=== PATIENT | male | born 1995 | race Caucasian/White ===

== ENCOUNTER 2019-11-01 22:59 | Inpatient (IN) | payer OTHER, SELFPAY ==
[2019-11-01 23:10] VITALS: BP 141/87; PULSE 103; RESP 20; TEMP 36.6; O2SAT 98
[2019-11-01 23:23] VITALS: BP 141/87; PULSE 90; RESP 18; O2SAT 98
[2019-11-01] MEDS: sodium chloride 0.9% 1,000 ML 999 ML IV (23:49)
[2019-11-01] MEDS: ondansetron 2 mg/ML SDV 2 mL 8 MG IVP (23:49)
[2019-11-01 23:52] VITALS: BP 139/89; PULSE 80; RESP 19; O2SAT 98
--- NOTE | 2019-11-01 23:52 | PC.NURSE ---
Encouraged patient to provide a urine specimen.
[2019-11-02 00:34] LABS: Basophils % 0.3 %; Eosinophils # 0.1 10^3/uL (0.0-0.8); Eosinophils % 0.4 %; Hematocrit 48.9 % (42.0-52.0); Lymphocytes # 1.7 10^3/uL (0.8-4.8); Lymphocytes % 13.6 %; Mean Corpuscular HGB Conc 34.8 g/dL (30.0-36.0); Mean Corpuscular Hemoglobin 29.6 pg (28.0-34.0); Mean Platelet Volume 10.9 fL (7.4-10.4); Monocytes # 0.7 10^3/uL (0.2-0.9); Monocytes % 5.4 %; Nucleated Red Blood Cells % 0 %; Platelet Count 248 10^3/cmm (130-400); Red Blood Count 5.75 10^6/uL (4.1-5.3); Red Cell Distribution Width 12.5 % (12.1-15.1); White Blood Count 12.4 10^3/uL (4.0-10.0)
[2019-11-02 00:40] LABS: INR 0.94 (0.8-1.2)
[2019-11-02 00:50] LABS: Acetaminophen 62.1 ug/mL (10-30); Alanine Aminotransferase 24 U/L (0-41); Albumin Level 5.1 g/dL (3.5-5.2); Alkaline Phosphatase 50 IU/L (40-130); Anion Gap 21.1 (5-19); Aspartate Amino Transferase 21 U/L (0-40); Blood Urea Nitrogen 11 mg/dL (6-20); Calcium 9.7 mg/dL (8.5-10.5); Carbon Dioxide 22 mmol/L (22-29); Chloride 100 mmol/L (98-107); Glomerular Filtration Rate 118.8 mL/min (90-130); Glucose 124 mg/dL (65-115); Osmolality Calculated 287 mOsm/kg (285-295); Potassium 3.1 mmol/L (3.5-5.1); Salicylate 24.1 mg/dL (3-10); Sodium 140 mmol/L (136-145); Total Bilirubin 0.3 mg/dL (0.15-1.2); Total Protein 8.1 g/dL (6.6-8.7)
[2019-11-02 00:57] LABS: Alcohol Level < 10 mg/dL (0-10)
[2019-11-02 01:13] LABS: Add Urine Microscopic? NO
[2019-11-02 01:23] LABS: Amphetamines Screen Urine Negative (Negative); Barbiturates Screen Urine Negative (Negative); Benzodiazepines Screen Urine Negative (Negative); Cocaine Screen Urine Negative (Negative); Opiate Screen Urine Positive (Negative); PCP Screen Urine Negative (Negative); THC Screen Urine Negative (Negative)
[2019-11-02 01:25] LABS: Bilirubin Urine Neg (NEGATIVE); Blood Urine Neg (Negative); Glucose Urine UA Norm (Normal); Ketones Urine 1+ (Negative); Leukocyte Esterase Urine Negative (Negative); Nitrate Urine Negative (Negative); Protein Urine Neg (Negative); Specific Gravity, Urine 1.015 (1.005-1.030); Urine Appearance Clear (CLEAR); Urine Color Yellow (Yellow); Urobilinogen Urine Norm (Negative); pH Urine 6.5 (5-7)
[2019-11-02] MEDS: potassium chloride ER 10 mEq Tablet 40 MEQ PO (01:39)
[2019-11-02 01:41] VITALS: BP 122/65; PULSE 89; RESP 19; O2SAT 98
[2019-11-02] MEDS: haloperidol inj 5 mg/mL INJ 1 mL 3 MG IVP (02:04)
--- NOTE | 2019-11-02 03:09 | PC.NURSE ---
Report called to Alyssa DUGGAN in the NPU. Patient to be transported with security and an additional staff member from the ED to the NPU.
[2019-11-02 03:17] VITALS: BP 107/58; PULSE 95; RESP 16; O2SAT 97
[2019-11-02 03:18] VITALS: RESP 16
[2019-11-02 06:00] VITALS: BP 113/66; PULSE 78; RESP 18; TEMP 36.7; O2SAT 98
[2019-11-02 08:04] LABS: Potassium 3.7 mmol/L (3.5-5.1); Salicylate 18.3 mg/dL (3-10)
--- NOTE | 2019-11-02 10:29 | P.HP_ITS ---
Providers/Chief Complaint Admitting Physician: Kiel Josue MD Chief Complaint: n/v, took pills HPI NPU History of Present Illness Paco Pichardo is a 24 year old male who presents today reporting that he is here because he took too many pills. He reports that this is his first psychiatric hospitalization. He denies ever having therapy, medication management, seen a psychiatrist, been hospitalized like this before, or had a previous suicide attempt. He reports that he smokes about a half pack of cigare ttes a day. He denies alcohol, marijuana, or any other illicit drug use. He has never been to a drug rehabilitation. He has never had a DUI. He reports that he took an overdose of pills, including Tylenol, reporting things were really stressful, he had a lot on his mind, he was overwhelmed, and things had just gotten bad. He reports that last night he threw up, his stomach was hurting, and it was horrible, and that he would never do that again. He reports that he was having financial issues, he got in an argument with his significant other, and he was feeling overwhelmed. He endorsed feelings of depression and anxiety, feelings of hopelessness, helplessness, and worthlessness. He reports that he is sleeping fine and his appetite is fine. But he did have suicidal thoughts and that did yield a suicide attempt. He denies overwhelming anxiety other times in his life and trauma related behaviors. PSYCHIATRIC HISTORY: As above. SUBSTANCE ABUSE HISTORY: As above. FAMILY HISTORY: He has a sister who has struggled with some mental health issues and had a suicide attempt. He denies any other mental health issues that run in the family. He reports that there are some addiction issues on his mother?s side of the family. DEVELOPMENTAL HISTORY: The patient denies any issues with mother?s or delivery of him. The patient met all developmental milestones on time. He denies speech therapy, learning support, emotional support, or special education classes. PSYCHOSOCIAL HISTORY: He reports that his parents were together when he was born. He has an older brother and a younger sister who are products of that same union. He reports that his childhood was pretty good; there was no emotional, physical, or sexual abuse. He reports that he went to the 11th grade at [employer], but he dropped out because his Principal would not let him do [employer], and he really wanted to focus on things that he enjoyed and could turn into a career. Tiffanie jimenez wanted to do auto work so he dropped out and got a GED. He endorses being a heterosexual, reporting his longest relationship was four years. He reports that he has never been . He has three children; a 5 year old boy, a 4 year old boy, and a 4 month old child. He has never been in the . He endorses being a Confucianist. He reports that the longest job he has ever had has been about two and a half years and that was at [employer]. He reports that he lives in a house with his significant other and his 4 month old child. He reports that his older boys are with their mom, and they are from a previous relationship. LEGAL HISTORY: He reports that he has been in retirement one time and that was for fifteen days. MEDICAL HISTORY: He denies any issues. Meds NPU Home Medications Medication Instructions Recorded Confirmed Last Taken Type No Known Home Medications 11/02/19 11/02/19 Unknown History Allergies Allergy/AdvReac Type Severity Reaction Status Date / Time No Known Allergies Allergy Verified 11/01/19 23:15 Mental Status Exam MSE Comments: This is an overweight, well-developed, white male, with significant tattooing on his exposed skin. No abnormal movements, except for psychomotor retardation. Cooperative with exam in no acute distress. Speech was decreased rate and volume. Mood described as ?great, feeling much better?; affect subdued. Thought process, organized. Thought content: patient denied any suicidal or homicidal ideation, there were no delusions reported or noted, patient denied any auditory or visual hallucinations. Attention, concentration, and memory appear intact but none were formally tested. He is alert and oriented times three. Insight and judgment are limited. Impulse control is impaired. Vitals/I&O/Wt Last Vital Signs Temp 98.0 F 11/02/19 06:00 Pulse 78 11/02/19 06:00 Resp 18 11/02/19 06:00 BP 113/66 11/02/19 06:00 Pulse Ox 98 11/02/19 06:00 11/01/19 11/02/19 11/02/19 22:59 06:59 14:59 Intake Total 360 / 360 Balance 360 / 360 Weight last 48 hrs Weight 89.267 kg Weight 66.224 kg Data NPU : 11/01/19 23:45 11/02/19 07:04 A&P Assessment and plan (1) Major depression: Status: Acute (2) Partner relationship problems: Status: Acute (3) Anxiety: Status: Acute Additional A&P Information This is a 24 year old, white male, with major depressive disorder, single episode, severe, and anxiety disorder, unspecified, who presents reporting that he has been overwhelmed and is open to a trial of medication. Start Lexapro 10 mg po qam. Encourage individual, group, and milieu therapy. Continue q-15 minute checks for safety. Involuntary Hold Information 96 Hour Hold: 96 Hour Involuntary Admission: Yes 96 Hour Hold Ending Date: 11/07/19 96 Hour Hold Ending Time: 12:01 Attestations NPU Medical Necessity Statement*: Inpatient hospitalization is medically necessary and the clinically appropriate intervention at this time. We will initiate medications and monitor and make changes as indicated. Patient will be in the hospital for over two midnights. Likely length of stay is two to four days. Coding Level of Care Code Acute Pro Shop Attendant for Blaze Lozoya Diagnoses Major depression F32.9 Partner relationship problems Z63.0 Anxiety F41.9
[2019-11-02] MEDS: escitalopram 10 mg Tablet PO (10:42)
[2019-11-02 14:00] VITALS: BP 111/70; PULSE 94; RESP 18; TEMP 36.8; O2SAT 98
--- NOTE | 2019-11-02 20:35 | W.ED.OVERDOS ---
HPI - Overdose General: Chief Complaint: Overdose Stated Complaint: n/v, took pills Time Seen by Provider: 11/01/19 23:12 History of Present Illness: HPI Narrative: 24-year-old male who from 7 to 8 PM took several Tylenol, ibuprofen, and omeprazole. He started to vomit at home. When asked why, he states he has been under a lot of stress, and depressed. He does not admit to overt suicidal ideation. He is otherwise healthy. He has had no prior history of psychiatric admission or treatment. MD complaint: intentional overdose Onset (ago): hour(s) Timing confirmed by: spouse (Significant other) Review of Systems Const: Denies: fever(s) or chills Eyes: Denies: change in vision ENMT: Denies: swelling of lips/tongue, post nasal drip or sinus pain Card: Denies: chest pain, palpitations, irregular heart rhythm, edema, swelling of feet/ankles, dyspnea on exertion or orthopnea Resp: Denies: dyspnea, productive cough, non-productive cough or wheezing GI: Reports: abdominal pain, nausea and vomiting; Denies: hematochezia or melena : Denies: difficulty urinating or hematuria Musc: Denies: neck pain or back pain Skin/Breast: Denies: rash or erythema Neuro: Reports: dizziness; Denies: headache(s), vertigo or confusion Psych: Reports: anxiety; Denies: visual hallucinations or auditory hallucinations Physical Exam Const: GENERAL APPEARANCE: well developed ORIENTATION/CONSCIOUSNESS: Yes oriented to person, Yes oriented to place and Yes oriented to time HENMT: COMMON NORMALS: normocephalic, external ears normal and Normal external nose present HEAD & SCALP: normocephalic FACE & SINUS: normal facial exam NOSE: Normal external nose present and No nasal discharge present EXTERNAL EAR: Yes external ears normal MOUTH: tongue normal Eye: COMMON NORMALS: Equal, round and reactive pupils present, EOMs intact bilaterally and conjunctivae normal EYELID: eyelids normal CONJUNCTIVA: Yes conjunctivae normal PUPIL: Yes Equal, round and reactive pupils present Neck/C-Spine: GENERAL: No tracheal deviation Chest: COMMONS NORMALS: normal inspection of the chest CHEST: No tenderness Resp: COMMON NORMALS: clear to auscultation bilaterally EFFORT & INSPECTION: No tachypneic, No respiratory distress, No retractions, No uses accessory muscles and No tracheal deviation AUSCULTATION: clear to auscultation bilaterally, no rhonchi, no wheezes and lung sounds not diminished Cardio: COMMON NORMALS: regular rate and regular rhythm RATE: regular rate RHYTHM: regular rhythm HEART SOUNDS: no murmurs PERIPHERAL PULSES: radial pulses present GI: INSPECTION: No abdominal distension AUSCULTATION: No Hyperactive bowel sounds present and No Hypoactive bowel sounds present PALPATION: No Guarding due to palpation present (GI) and No Rigid due to palpation PERCUSSION: no dullness to percussion and no tympanic to percussion : COMMON NORMALS: Yes no CVA tenderness BLADDER/KIDNEY EXAM: Yes no CVA tenderness Back/Pelvis: COMMON NORMALS: no CVA tenderness Neuro: SENSORIUM/ORIENTATION: Yes oriented to person, Yes oriented to place and Yes oriented to time Psych: COMMON NORMALS: Normal thought process present and speech normal APPEARANCE: Yes grossly normal ATTITUDE: Yes calm ACTIVITY/MOTOR BEHAVIOR: Yes psychomotor slowing SPEECH: Yes normal speech MOOD & AFFECT: Yes depressed mood THOUGHT PROCESS: Normal thought process present THOUGHT CONTENT: Yes Suicidality present, No Homicidality present, No delusions and No Hallucination(s) present ATTENTION/CONCENTRATION: Yes attention grossly intact MEMORY/COGNITION: Yes memory grossly intact INSIGHT: Fair insight present (Psych) JUDGEMENT: Limited judgement present (Psych) Skin: COMMON NORMALS: no rashes or lesions noted GENERAL SKIN EXAM: no rashes or lesions noted Course Consultations: Consultation #1: Joselo Vital Signs: Vital signs: Vital Signs Temperature 98.4 F 11/02/19 21:29 Pulse Rate 78 11/02/19 21:29 Respiratory Rate 20 H 11/02/19 21:29 Blood Pressure 103/53 11/02/19 21:29 Pulse Oximetry 98 11/02/19 21:29 MDM - Overdose MDM Narrative: Medical decision making narrative: 24-year-old male with intentional overdose. Poison control was contacted. His dosages well under the 24,000 mg dose of ibuprofen, that would be toxic. His dosage of Tylenol is only 2 g, and he is under the treatment line at 4 hours. He has been vomiting a couple of times, but this is improved with Zofran and haloperidol. He is resting comfortably now. Spoke with psychiatry, they are comfortable taking him on the floor in the NPU. Lab Data: Labs: Lab Results 11/01/19 11/01/19 11/01/19 Range/Units 23:45 23:45 23:45 WBC 12.4 H (4.0-10.0) 10^3/ uL RBC 5.75 H (4.1-5.3) 10^6/u L Hgb 17.0 H (11.7-16.6) g/dL Hct 48.9 (42.0-52.0) % MCV 85.0 (80-94) fL MCH 29.6 (28.0-34.0) pg MCHC 34.8 (30.0-36.0) g/dL RDW 12.5 (12.1-15.1) % Plt Count 248 (130-400) 10^3/c mm MPV 10.9 H (7.4-10.4) fL Neut % (Auto) 80.0 % Lymph % (Auto) 13.6 % [place] % (Auto) 5.4 % Eos % (Auto) 0.4 % Baso % (Auto) 0.3 % Neut # (Auto) 9.90 H (1.8-7.7) 10^3/u L Lymph # (Auto) 1.7 (0.8-4.8) 10^3/u L [place] # (Auto) 0.7 (0.2-0.9) 10^3/u L Eos # (Auto) 0.1 (0.0-0.8) 10^3/u L Baso # (Auto) 0.0 (0.0-0.1) 10^3/u L Nucleated RBC % (a uto) 0 % Nucleated RBCs # 0.0 /100WBC PT 12.80 (12.1-14.9) SECO NDS INR 0.94 (0.8-1.2) Sodium 140 (136-145) mmol/L Potassium 3.1 L (3.5-5.1) mmol/L Chloride 100 (98-107) mmol/L Carbon Dioxide 22 (22-29) mmol/L Anion Gap 21.1 H (5-19) BUN 11 (6-20) mg/dL Creatinine 0.8 (0.7-1.2) mg/dL GFR Calculation 118.8 (90-130) mL/min Glucose 124 H (65-115) mg/dL Calculated Osmolal ity 287 (285-295) mOsm/k g Calcium 9.7 (8.5-10.5) mg/dL Total Bilirubin 0.3 (0.15-1.2) mg/dL AST 21 (0-40) U/L ALT 24 (0-41) U/L Alkaline Phosphata se 50 (40-130) IU/L Total Protein 8.1 (6.6-8.7) g/dL Albumin 5.1 (3.5-5.2) g/dL Globulin 3.0 (1.3-4.6) g/dL Urine Color (Yellow) Urine Appearance (CLEAR) Urine pH (5-7) Ur Specific Gravit y (1.005-1.030) Urine Protein (Negative) Urine Glucose (UA) (Normal) Urine Ketones (Negative) Urine Blood (Negative) Urine Nitrate (Negative) Urine Bilirubin (NEGATIVE) Urine Urobilinogen (Negative) mg/dL Ur Leukocyte Kim ase (Negative) Salicylates 24.1 H (3-10) mg/dL Urine Opiates Scre en (Negative) ng/mL Acetaminophen 62.1 H (10-30) ug/mL Ur Barbiturates Sc reen (Negative) ng/mL Ur Phencyclidine S crn (Negative) ng/mL Ur Amphetamines Sc reen (Negative) ng/mL U Benzodiazepines Scrn (Negative) ng/mL Urine Cocaine Scre en (Negative) ng/mL U Marijuana (THC) Screen (Negative) ng/mL Ethyl Alcohol < 10 (0-10) mg/dL 11/02/19 11/02/19 Range/Units 01:05 01:05 WBC (4.0-10.0) 10^3/ uL RBC (4.1-5.3) 10^6/u L Hgb (11.7-16.6) g/dL Hct (42.0-52.0) % MCV (80-94) fL MCH (28.0-34.0) pg MCHC (30.0-36.0) g/dL RDW (12.1-15.1) % Plt Count (130-400) 10^3/c mm MPV (7.4-10.4) fL Neut % (Auto) % Lymph % (Auto) % [place] % (Auto) % Eos % (Auto) % Baso % (Auto) % Neut # (Auto) (1.8-7.7) 10^3/u L Lymph # (Auto) (0.8-4.8) 10^3/u L [place] # (Auto) (0.2-0.9) 10^3/u L Eos # (Auto) (0.0-0.8) 10^3/u L Baso # (Auto) (0.0-0.1) 10^3/u L Nucleated RBC % (a uto) % Nucleated RBCs # /100WBC PT (12.1-14.9) SECO NDS INR (0.8-1.2) Sodium (136-145) mmol/L Potassium (3.5-5.1) mmol/L Chloride (98-107) mmol/L Carbon Dioxide (22-29) mmol/L Anion Gap (5-19) BUN (6-20) mg/dL Creatinine (0.7-1.2) mg/dL GFR Calculation (90-130) mL/min Glucose (65-115) mg/dL Calculated Osmolal ity (285-295) mOsm/k g Calcium (8.5-10.5) mg/dL Total Bilirubin (0.15-1.2) mg/dL AST (0-40) U/L ALT (0-41) U/L Alkaline Phosphata se (40-130) IU/L Total Protein (6.6-8.7) g/dL Albumin (3.5-5.2) g/dL Globulin (1.3-4.6) g/dL Urine Color Yellow (Yellow) Urine Appearance Clear (CLEAR) Urine pH 6.5 (5-7) Ur Specific Gravit y 1.015 (1.005-1.030) Urine Protein Neg (Negative) Urine Glucose (UA) Norm (Normal) Urine Ketones 1+ H (Negative) Urine Blood Neg (Negative) Urine Nitrate Negative (Negative) Urine Bilirubin Neg (NEGATIVE) Urine Urobilinogen Norm (Negative) mg/dL Ur Leukocyte Kim ase Negative (Negative) Salicylates (3-10) mg/dL Urine Opiates Scre en Positive H (Negative) ng/mL Acetaminophen (10-30) ug/mL Ur Barbiturates Sc reen Negative (Negative) ng/mL Ur Phencyclidine S crn Negative (Negative) ng/mL Ur Amphetamines Sc reen Negative (Negative) ng/mL U Benzodiazepines Scrn Negative (Negative) ng/mL Urine Cocaine Scre en Negative (Negative) ng/mL U Marijuana (THC) Screen Negative (Negative) ng/mL Ethyl Alcohol (0-10) mg/dL Discharge Plan Discharge Patient Disposition: Admitted As Inpatient Admit Provider: Kiel Josue Discharge Date/Time: 11/02/19 03:18 Coding Level of Care Code ED Television News Video Editor for Blaze Lozoya
[2019-11-02] MEDS: hyDROXYzine 25 mg Capsule 50 MG PO (21:20)
[2019-11-02] MEDS: trazodone 50 mg Tablet PO (21:21)
[2019-11-02 21:29] VITALS: BP 103/53; PULSE 78; RESP 20; TEMP 36.9; O2SAT 98
[2019-11-03 06:00] VITALS: BP 95/61; PULSE 67; RESP 19; TEMP 36.7; O2SAT 97
[2019-11-03] MEDS: escitalopram 10 mg Tablet PO (08:09)
--- NOTE | 2019-11-03 12:07 | PC.RESP ---
Smoking Cessation information sent to patient.
[2019-11-03 14:00] VITALS: BP 112/67; PULSE 88; RESP 20; TEMP 36.7; O2SAT 97
--- NOTE | 2019-11-03 18:25 | P.DS_ITS ---
Diagnoses at Discharge Discharge Diagnosis (1) Major depression: Status: Acute (2) Partner relationship problems: Status: Acute (3) Anxiety: Status: Acute Reason for Visit Reason for Visit: n/v, took pills Brief History: History of Present Illness Paco Pichardo is a 24 year old male who presents today reporting that he is here because he took too many pills. He reports that this is his first psychiatric hospitalization. He denies ever having therapy, medication management, seen a psychiatrist, been hospitalized like this before, or had a previous suicide attempt. He reports that he smokes about a half pack of cigarettes a day. He denies alcohol, marijuana, or any other illicit drug use. He has never been to a drug rehabilitation. He has never had a DUI. He reports that he took an overdose of pills, including Tylenol, reporting things were really stressful, he had a lot on his mind, he was overwhelmed, and things had just gotten bad. He reports that last night he threw up, his stomach was hurting, and it was horrible, and that he would never do that again. He reports that he was having financial issues, he got in an argument with his significant other, and he was feeling overwhelmed. He endorsed feelings of depression and anxiety, feelings of hopelessness, helplessness, and worthlessness. He reports that he is sleeping fine and his appetite is fine. But he did have suicidal thoughts and that did yield a suicide attempt. He denies overwhelming anxiety other times in his life and trauma related behaviors. PSYCHIATRIC HISTORY: As above. SUBSTANCE ABUSE HISTORY: As above. FAMILY HISTORY: He has a sister who has struggled with some mental health issues and had a suicide attempt. He denies any other mental health issues that run in the family. He reports that there are some addiction issues on his mother?s side of the family. DEVELOPMENTAL HISTORY: The patient denies any issues with mother?s or delivery of him. The patient met all developmental milestones on time. He denies speech therapy, learning support, emotional support, or special education classes. PSYCHOSOCIAL HISTORY: He reports that his parents were together when he was born. He has an older brother and a younger sister who are products of that same union. He reports that his childhood was pretty good; there was no emotional, physical, or sexual abuse. He reports that he went to the 11th grade at [employer], but he dropped out because his Principal would not let him do [employer], and he really wanted to focus on things that he enjoyed and could turn into a career. He wanted to do auto work so he dropped out and got a GED. He endorses being a heterosexual, reporting his longest relationship was four years. He reports that he has never been . He has three children; a 5 year old boy, a 4 year old boy, and a 4 month old child. He has never been in the . He endorses being a [employer]. He reports that the longest job he has ever had has been about two and a half years and that was at [employer]. He reports that he lives in a house with his significant other and his 4 month old child. He reports that his older boys are with their mom, and they are from a previous relationship. LEGAL HISTORY: He reports that he has been in [facility] one time and that was for fifteen days. MEDICAL HISTORY: He denies any issues. Hospital Course Hospital Course The patient presented to the emergency room after taking Tylenol, Ibuprofen, and Omeprazole, after some stressful issues at home. He did not admit to a suicide attempt, in the emergency room, but just stated that he had been under a lot of stress. He denied prior psychiatric admission, and he was admitted on a 96-hour hold to the neuropsychiatric unit for definitive treatment for those issues. On the unit, he was very remorseful and upset with himself, identifying how ?stupid? it was for him to behave in the way that he had. He was immediately open to medication to help with his anxiety and depression. He had some concerns about work and his significant other, as well as his child who he provides for. He quickly acclimated to the individual, group, and milieu therapies provided. He tolerated the medication fine. He was very open to follow up and remorseful for his actions. He showed modest improvement. During the hospitalization, the patient had routine laboratory studies which were within normal limits, except for a few outliers. Additionally, the patient had a general medical evaluation which was within normal limits and revealed no new acute processes. Discharge Summary At the time of discharge the patient denied all lethality, was absent psychosis, and mood and anxiety were well managed. The patient endorsed a plan to follow-up with outpatient services, as recommended. The patient was noted to be absent credible lethality, and had obtained benefit from an inpatient hospitalization, and so he was discharged. Involuntary Hold Information 96 Hour Hold: 96 Hour Involuntary Admission: Yes 96 Hour Hold Ending Date: 11/07/19 96 Hour Hold Ending Time: 12:01 Mental Status Exam MSE Comments: This is an overweight, well-developed, white male, with significant tattooing on his exposed skin. No abnormal movements, except for psychomotor retardation. Cooperative with exam in no acute distress. Speech was more normal rate and volume. Mood described as alot better; affect brighter. Thought process, organized. Thought content: patient denied any suicidal or homicidal ideation, there were no delusions reported or noted, patient denied any auditory or visual hallucinations. Attention, concentration, and memory appear intact but none were formally tested. He is alert and oriented times three. Insight and judgment are improving. Impulse control is limited, but improving. Discharge Data Vitals: Last Vital Signs Temp 98.0 F 11/03/19 14:00 Pulse 88 11/03/19 14:00 Resp 20 H 11/03/19 14:00 BP 112/67 11/03/19 14:00 Pulse Ox 97 11/03/19 14:00 Discharge Plan Discharge Patient Disposition: Home Condition: Stable Prescriptions: New trazodone 50 mg Tablet 50 mg PO BEDTIME PRN (Reason: Sleep) 30 Days Qty: 30 RF: 1 hydroxyzine pamoate 25 mg Capsule 50 mg PO Q6H PRN (Reason: Anxiety) 30 Days Qty: 180 RF: 1 escitalopram oxalate 10 mg Tablet 10 mg PO DAILY 30 Days Qty: 30 RF: 1 Continued No Known Home Medications RF: 0 Discharge Orders: Discharge Order (Routine); Ordered 11/03/19 Ordered By: Kiel Josue Referrals: [facility] [Outside] - 4-7 days (go as a walk-in as as soon as you can. hours: 7:30 a.m.-2:30 p.m. ) Ijeoma Morrell DO [Physician] - (possible primary care provider for you. ) Discharge Diet: Regular Discharge Activity: Resume usual activity Patient Instructions: Trazodone (By mouth), Hydroxyzine Pamoate (By mouth), Escitalopram (By mouth) Discharge Date/Time: 11/03/19 20:03 Discharge Attestations NPU Time Spent in Discharge Care*: less than 30 min Specific Discharge Activities: Specific discharge activities: educating patient, discussing with social work case manager/social workers/dc planners, do cumenting/other paperwork and evaluating patient/reviewing data Coding Level of Care Code Acute Child Care Attendant for Blaze Fwd Diagnoses Major depression F32.9 Partner relationship problems Z63.0 Anxiety F41.9
[2019-11-03 18:40] VITALS: BP 112/67; PULSE 88; RESP 20; TEMP 36.7; O2SAT 97
== END 2019-11-03 20:03 | disposition home or self-care (01) | DRG 885 ==
LOC: ER 23:18 → NP 11-02 01:56
PROVIDERS: Emergency Medicine; Admitting Provider Psychiatry & Neurology Psychiatry; Visit Provider Psychiatry & Neurology Psychiatry
DX: F32.2 Major depressive disorder, single episode, severe without psychotic features (principal); F17.210 Nicotine dependence, cigarettes, uncomplicated; Z63.0 Problems in relationship with spouse or partner; F41.9 Anxiety disorder, unspecified; Z81.8 Family history of other mental and behavioral disorders
CPT/HCPCS: 12345; 36415; 80053; 80306; 80307; 81003; 84132; 85025; 85610; 96375; 99282; J1630; J2405; J7030

== ENCOUNTER → 2020-03-16 11:27 | Outpatient (BNVA) | payer OTHER, SELFPAY | PROVIDERS: PCP Family Medicine; Visit Provider Family Medicine | DX: R50.9 Fever, unspecified (principal); Z20.828 Contact with and (suspected) exposure to other viral communicable diseases | CPT/HCPCS: 87400; 87635 ==

== ENCOUNTER 2022-03-22 18:45 | Emergency (ER) | payer SELFPAY ==
--- NOTE | 2022-03-22 18:50 | XRR_ITS ---
PROCEDURE INFORMATION: Exam: XR Left Foot Exam date and time: 03/22/2022 6:55 PM Age: 26 years old Clinical indication: Pain; Foot; Left; Additional info: Injury TECHNIQUE: Imaging protocol: Radiologic exam of the Left foot. Views: 3 or more views. COMPARISON: No relevant prior studies available. FINDINGS: Bones/joints: Osseous structures are intact. Negative for fracture. Joint spaces are preserved. Soft tissues: Normal. XR/XR foot LT min 3V* [id number] IMPRESSION: No acute findings.
--- NOTE | 2022-03-22 18:50 | XRR_ITS ---
PROCEDURE INFORMATION: Exam: XR Left Ankle Exam date and time: 03/22/2022 6:55 PM Age: 26 years old Clinical indication: Pain; Ankle; Left; Additional info: Injury TECHNIQUE: Imaging protocol: Radiologic exam of the Left ankle. Views: 3 or more views. COMPARISON: No relevant prior studies available. FINDINGS: Bones/joints: Osseous structures are intact. Negative for fracture. Joint spaces are preserved. Soft tissues: Normal. XR/XR ankle LT min 3V* [id number] IMPRESSION: No acute findings.
[2022-03-22 19:06] VITALS: BP 146/87; RESP 16; TEMP 36.7; O2SAT 99
--- NOTE | 2022-03-22 19:14 | ED_ITS ---
HPI - Extremity Problem General: Chief complaint: Extremity Injury, Lower Stated complaint: left foot injury Time Seen by Provider: 03/22/22 18:50 Source: patient Mode of arrival: ambulatory Limitations: no limitations History of Present Illness: 26-year-old male states that he dropped a 60 pound deal of plastic wrap on his left great toe he has a small laceration to his toe he has some pain as well denies any other injuries rates his pain a 4 out of 10 his nail is intact. Denies any worsening improving factors. Associated symptoms: Deny chest pain, fever(s) or rash Review of Systems Const: Denies: fever(s), chills, body aches or change in appetite Eyes: Denies: blurry vision or eye discomfort ENMT: Denies: throat pain or dental pain Card: Denies: chest pain Resp: Denies: dyspnea GI: Denies: abdominal pain, nausea, vomiting or diarrhea : Denies: dysuria Musc: Reports: extremity pain Skin/Breast: Denies: rash Neuro: Denies: headache(s) Psych: Denies: depression Tyrone/Lymph: Denies: easy bruising All/Imm: Denies: urticaria PFSH ED PFSH: Medical History Psychiatric care Surgical History No pertinent past surgical history Family History Other CAD (coronary artery disease) Cancer Social History Smoking and tobacco status: current every day smoker cigarettes Packs smoked per day: 0.1 Alcohol intake: never Physical Exam Const: COMMON NORMALS: no acute distress and patient oriented x3 HENMT: COMMON NORMALS: normocephalic HEAD & SCALP: normocephalic Eye: COMMON NORMALS: conjunctivae normal CONJUNCTIVA: Yes conjunctivae normal Neck/C-Spine: COMMON NORMALS: supple Chest: COMMONS NORMALS: normal inspection of the chest Resp: COMMON NORMALS: normal respiratory effort Cardio: COMMON NORMALS: regular rate RATE: regular rate GI: INSPECTION: Yes normal to inspection Extremity: COMMON NORMALS: full ROM OTHER: Superficial laceration just proximal to the nailbed of the left great toe less than 1 cm Neuro: COMMON NORMALS: patient oriented x3 Psych: COMMON NORMALS: mental status grossly normal Skin: COMMON NORMALS: no rashes or lesions noted GENERAL SKIN EXAM: no rashes or lesions noted Course Vital Signs: Vital signs: Vital Signs Temperature 98.0 F 03/22/22 19:06 Respiratory Rate 16 03/22/22 19:06 Blood Pressure 146/87 03/22/22 19:06 Pulse Oximetry 99 03/22/22 19:06 Oxygen Delivery Me thod 03/22/22 19:06 MDM - Extremity (Nontraumatic) Medical Decision Making Patient presents with superficial laceration to his great toe x-rays negative repaired with tissue adhesive he stable for discharge. Lab Data Radiology Impressions Ankle X-Ray 03/22/22 18:50 IMPRESSION: No acute findings. Foot X-Ray 03/22/22 18:50 IMPRESSION: No acute findings. Discharge Plan Discharge Patient Disposition: Home Clinical Impression: Laceration of toe Qualifiers: Encounter type: initial encounter Toe: great toe Damage to nail status: without damage Foreign body presence: without foreign body Laterality: left Qualified Code(s): S91.112A - Laceration without foreign body of left great toe without damage to nail, initial encounter Condition: Stable Prescriptions: No Action venlafaxine [Effexor XR] 37.5 mg capsule,extended release 24hr 37.5 mg PO DAILY Qty: 30 0RF Rx Instructions: 340 B Discharge Orders: Discharge ED (Routine); Ordered 03/22/22 Ordered By: Vicky Laguna Referrals: Ijeoma Morrell DO [Primary Care Provider] - 1-3 days Discharge Diet: Advance as tolerated Discharge Activity: Resume usual activity Patient Instructions: Laceration (ED), Skin Adhesive Care (ED) Coding Level of Care Code ED Staff Pharmacist [facility] Exam Comprehensive
== END 2022-03-22 19:29 | disposition home or self-care (01) ==
PROVIDERS: Emergency Provider Emergency Medicine; PCP Family Medicine
DX: S91.112A Laceration without foreign body of left great toe without damage to nail, initial encounter (principal); F17.210 Nicotine dependence, cigarettes, uncomplicated; W20.8XXA Other cause of strike by thrown, projected or falling object, initial encounter
CPT/HCPCS: 12001; 73610; 73630; 99283

== ENCOUNTER 2022-11-29 10:50 | Emergency (ER) | payer SELFPAY ==
[2022-11-29 11:28] VITALS: BP 123/79; PULSE 69; RESP 16; TEMP 36.7; O2SAT 99
--- NOTE | 2022-11-29 11:35 | ED_ITS ---
HPI - Head Injury General: Chief complaint: Head Injury Stated complaint: head inj Time Seen by Provider: 11/29/22 11:35 Source: patient Mode of arrival: ambulatory Limitations: no limitations History of Present Illness: Patient is a 27-year-old male who presents to ED today for evaluation of a head injury that he sustained yesterday while at work. 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 There was no LOC. He states immediately afterwards he saw stars for a little bit. He states following work and later that evening he felt a little nauseous and felt like his vision was slightly off. He states his symptoms have improved into today. He complains of a mild headache. He has no other complaints or injuries at this time. States he would not like injury to be Worker's Comp. Complaint: head injury Onset (ago): day(s) (yesterday) Mechanism of Injury: work related injury Place: work Loss of Consciousness: no Location of injury: frontal Severity: mild Radiation: none Other Injuries: none Associated symptoms: Reports nausea (improved), visual changes (improved) and other (headache); Deny confusion, neck pain, vertigo or vomiting Review of Systems Eyes: Denies: photophobia, floaters or seeing flashes ENMT: Denies: ear discharge or nasal discharge GI: Reports: nausea (improved); Denies: vomiting Musc: Denies: neck pain or back pain Neuro: Reports: headache(s); Denies: numbness in extremities, weakness in extremities, sensory changes, lack of coordination, difficulty walking, frequent falls, dizziness, vertigo, confusion, behavioral changes, Slurred speech present, difficulty communicating thoughts or seizure-like activity PFS ED PFSH: Medical History Nicotine dependence, cigarettes, with unspecified nicotine-induced disorders Psychiatric care Surgical History No pertinent past surgical history Family History Other CAD (coronary artery disease) Cancer Social History Smoking and tobacco status: current every day smoker e-cigarettes E-Cigarette Details: vaporizer device Alcohol intake: never Substance/Drug Use: never Physical Exam Const: COMMON NORMALS: no acute distress, average body habitus, patient oriented x3, no limitations, healthy appearing, alert and well nourished GENERAL APPEARANCE: cooperative ORIENTATION/CONSCIOUSNESS: Yes awake, Yes oriented to person, Yes oriented to place and Yes oriented to time HENMT: COMMON NORMALS: normocephalic, TM's normal bilaterally and Normal external nose present HEAD & SCALP: normal to inspection and normocephalic HEAD IMAGES: 1. small abrasion/no hematoma FACE & SINUS: normal facial exam and sinuses nontender NOSE: Normal external nose present TYMPANIC MEMBRANE: TM's normal bilaterally Eye: COMMON NORMALS: Equal, round and reactive pupils present and EOMs intact bilaterally GENERAL EYE: appearance normal, both eyes and all related structures and normal light reflex PUPIL: Yes Equal, round and reactive pupils present DIRECT OPHTHALMOSCOPY: Yes normal light reflex Neck/C-Spine: COMMON NORMALS: full ROM GENERAL: Yes normal visual inspection CERVICAL SPINE: No Cervical spine tenderness Neuro: MADELYN COMA SCALE: document GCS findings Madelyn coma scale eye o pening: Spontaneous Madelyn coma scale verbal response: Orientated Madelyn coma scale motor response: [place] commands [place] coma scale total score: 15 COMMON NORMALS: patient oriented x3, CN's II-XII intact bilaterally, moves all extremities, no focal motor deficits, no sensory deficits noted and gait normal SENSORIUM/ORIENTATION: Yes alert, Yes oriented to person, Yes oriented to place and Yes oriented to time CRANIAL NERVES: Yes CN normal except as noted SPEECH: speech normal GAIT: Yes Normal gait present MOTOR EXAM: 5/5 motor strength present throughout Course Vital Signs: Vital signs: Vital Signs Temperature 98.0 F 11/29/22 11:28 Pulse Rate 69 11/29/22 11:28 Respiratory Rate 16 11/29/22 11:28 Blood Pressure 123/79 11/29/22 11:28 Pulse Oximetry 99 11/29/22 11:28 Oxygen Delivery Me thod Room Air 11/29/22 11:28 MDM - Head Injury Medcial Decision Making Based on patient's history and physical exam I do not feel like he needs to undergo emergent CT imaging. Discussed close observation of symptoms and follow-up with his primary care provider in 3 to 5 days. Return to ED precautions given. Discharge Plan Discharge Patient Disposition: Home Clinical Impression: Minor head injury without loss of consciousness Qualifiers: Encounter type: initial encounter Qualified Code(s): S09.90XA - Unspecified injury of head, initial encounter Condition: Stable Prescriptions: No Action lamotrigine 25 mg tablet 25 mg PO DAILY 14 Days Qty: 150 0RF Rx Instructions: Take 1 tab daily for 2 weeks, then 2 tabs daily for 2 weeks then 3 tabs daily for 2 weeks then 4 tabs daily trazodone 50 mg tablet 100 mg PO .HS PRN (Reason: insomnia) Qty: 60 1RF ondansetron HCl (PF) 4 mg/2 mL solution 8 mg IM ONCE Qty: 4 0RF Discharge Orders: Discharge ED (Routine); Ordered 11/29/22 Ordered By: Carolyne Tomas Referrals: Ijeoma Morrell DO [Primary Care Provider] - Patient Instructions: Head Injury (DC) Stand Alone Forms: Work/School Release Coding Level of Care Code ED Vice President [employer]
[2022-11-29 12:09] VITALS: PULSE 86; RESP 16; O2SAT 98
== END 2022-11-29 12:10 | disposition home or self-care (01) ==
PROVIDERS: Emergency Provider Physician Assistant; PCP Family Medicine
DX: S09.8XXA Other specified injuries of head, initial encounter (principal); F17.290 Nicotine dependence, other tobacco product, uncomplicated; W22.8XXA Striking against or struck by other objects, initial encounter; Y99.0 Civilian activity done for income or pay
CPT/HCPCS: 99282

== ENCOUNTER → 2023-04-05 16:50 | Outpatient (BNVA) | payer SELFPAY | PROVIDERS: PCP Family Medicine; Visit Provider Registered Nurse Neonatal Intensive Care | DX: Z20.828 Contact with and (suspected) exposure to other viral communicable diseases (principal) | CPT/HCPCS: 87400 ==

== ENCOUNTER → 2023-04-27 16:51 | Outpatient (BNVA) | payer SELFPAY | PROVIDERS: PCP Family Medicine; Visit Provider Nurse Practitioner | DX: R09.81 Nasal congestion (principal) | CPT/HCPCS: 87400 ==

== ENCOUNTER 2023-09-19 12:50 | Outpatient (CLI) | payer SELFPAY ==
--- NOTE | 2023-09-19 12:54 | XR_ITS ---
WS: [id number] XR lumbar spine 2-3V* [id number] REASON FOR EXAM: low back pain FINDINGS: Mild straightening of the normal lordosis. No vertebral body abnormality. Intervertebral disc spaces are intact and relatively well preserved. Mild narrowing of the L5-S1 disc space. No facet joint abnormality. No spondylolysis or spondylolisthesis. The lumbar spine is unchanged compared to 01/26/2018. XR/XR lumbar spine 2-3V* [id number] IMPRESSION: Stable lumbar spine with no evidence significant abnormality.
--- NOTE | 2023-09-19 12:54 | XR_ITS ---
WS: [id number] XR thoracic spine 2V [id number] REASON FOR EXAM: chronic low back pain FINDINGS: No significant scoliosis or kyphosis. No vertebral body abnormality. Intervertebral disc spaces are intact and well preserved. XR/XR thoracic spine 2V [id number] IMPRESSION: No significant abnormality.
== END 2023-09-19 12:51 | disposition home or self-care (01) ==
LOC: LAB 12:52
PROVIDERS: PCP Family Medicine; Visit Provider Family Medicine
DX: M54.6 Pain in thoracic spine (principal); G89.29 Other chronic pain; M54.50 Low back pain, unspecified; M48.07 Spinal stenosis, lumbosacral region
CPT/HCPCS: 72070; 72100